=== PATIENT | male | born 1970 | race Two or more races ===

== ENCOUNTER 2024-12-18 16:06 | Emergency (ER) | payer MEDICAID, SELFPAY ==
[2024-12-18 16:18] VITALS: BP 123/78; PULSE 67; RESP 18; TEMP 37.1; O2SAT 96
--- NOTE | 2024-12-18 16:26 | XR_ITS ---
Examination: CT abdomen and pelvis without contrast. Coronal 3-D reconstructions. Sagittal 2-D reconstructions. Date and time of exam:December 18, 2024, 1635 hrs. Indications: Abdominal pain radiating to the lower back beginning today. CTDI: vol (mGy): 9.39. DLP: (mGycm): 195. Technique: Axial images of the abdomen have been obtained, 3 mm slice thickness Intravenous contrast material has not been administered. Low dose protocols were performed. One or more of the following dose reduction techniques were used; automated exposure control, adjustment of the mA and/or KV according to patient size, use of iterative reconstruction technique. Findings: 22 mm liver cyst, 26 mm left lobe liver cyst Fatty infiltration throughout the liver No gallstones Spleen not enlarged No pancreatic or adrenal mass. No renal or ureteral calculi, no hydronephrosis Aorta normal size No bowel obstruction Normal appendix No diverticulitis Normal seminal vesicles No prostatomegaly Contracted urinary bladder Moderate osteopenia without significant disc narrowing Impression: Benign liver cysts. No renal or ureteral calculi, no hydronephrosis. Normal appendix. No diverticulitis. No significant lumbar degenerative disc disease
--- NOTE | 2024-12-18 16:26 | PD.EDRME ---
Rapid Medical Screening Exam RME Arrival date/time: 12/18/24 16:06 54-year-old male with no known medical history presents to the emergency room with a chief complaint of right-sided flank pain x 1 day I have greeted and performed a focused initial assessment of this patient. A comprehensive ED assessment and evaluation of the patient, analysis of all test results, and completion of the medical decision making process will be conducted by additional ED providers. Chief Complaint: Back Pain/Injury Time Seen by Provider: 12/18/24 16:18 Vital signs: Vital Signs Temperature 98.7 F 12/18/24 16:18 Pulse Rate 67 12/18/24 16:18 Respiratory Rate 18 12/18/24 16:18 Blood Pressure 123/78 12/18/24 16:18 Pulse Oximetry (%) 96 12/18/24 16:18 Oxygen Delivery Method Room Air 12/18/24 16:18 Vital signs reviewed by provider: Yes
[2024-12-18 17:02] LABS: Basophils # (Auto) 0.1 Thou/mm3 (0.0-0.2); Basophils % (Auto) 1 % (0-2.5); Eosinophils # (Auto) 0.2 Thou/mm3 (0.0-0.5); Eosinophils % (Auto) 2 % (0-10); Hematocrit 45.0 % (41.0-53.0); Hemoglobin 15.7 g/dL (13.5-16.0); Immature Granulocytes Auto 0.05 Thou/mm3 (0.00-0.00); Lymphocytes # (Auto) 2.6 Thou/mm3 (1.0-4.8); Lymphocytes % (Auto) 28 % (10-50); Mean Corpuscular HGB Conc 34.9 g/dl (31.0-37.0); Mean Corpuscular Hemoglobin 32.1 pg (25.0-35.0); Mean Corpuscular Volume 92 fL (80-100); Monocytes # (Auto) 0.8 Thou/mm3 (0.0-0.8); Monocytes % (Auto) 9 % (0-12); Neutrophils # (Auto) 5.6 Thou/mm3 (1.8-7.7); Neutrophils % (Auto) 61 % (37-80); Nucleated Red Blood Cell # 0.00 Thou/mm3 (0.00-0.00); Nucleated Red Blood Cell % 0 /100 WBC (0); Platelet Count 267 Thou/mm3 (140-440); RDW Standard Deviation 39.6 fL (35.1-43.9); Red Blood Count 4.89 Miln/mm3 (4.50-5.90); White Blood Count 9.2 Thou/mm3 (3.8-10.6)
[2024-12-18 17:14] LABS: Alanine Aminotransferase 40 U/L (10-49); Albumin, Serum 4.2 gm/dL (3.5-5.0); Albumin/Globulin Ratio 1.4 (1.2-2.2); Alkaline Phosphatase 106 U/L (46-116); Anion Gap 10 (7-16); Aspartate Amino Transferase 24 U/L (0-34); BUN/Creatinine Ratio 13 Ratio (12-20); Bilirubin,Total 1.6 mg/dL (0.3-1.2); Blood Urea Nitrogen 10 mg/dL (9-23); Calcium 9.8 mg/dL (8.3-10.6); Calcium (Corrected) 9.8 mg/dL (8.5-10.1); Carbon Dioxide 26.1 mMol/L (20.0-31.0); Chloride 108 mMol/L (98-107); Creatinine (Component) 0.8 mg/dL (0.6-1.3); Globulin 3.1 gm/dL (2.3-3.5); Glucose 93 mg/dL (74-106); Lipase 31 U/L (12-53); Osmolality,Calculated 285 (275-295); Potassium 3.8 mMol/L (3.4-5.1); Sodium 144 mMol/L (136-145); Total Protein 7.3 gm/dL (5.7-8.2); eGFR > 60 See Note
[2024-12-18 17:26] LABS: Collection Type, Urine Clean Catch
[2024-12-18] MEDS: KETOROLAC INJ 60 MG/2 ML VIAL 30 MG IM (17:29)
[2024-12-18 17:40] LABS: Bilirubin,Urine Negative (Negative); Blood,Urine Negative (Negative); Clarity,Urine Clear (Clear/Hazy); Color,Urine Lt-Yellow (Lt Yel-Yel); Glucose, Urine Negative (Negative); Ketones,Urine Negative (Negative); Leukocyte Esterase,Urine Negative (Negative); Nitrite,Urine Negative (Negative); PH,Urine 5.5 (5.0-7.0); Protein,Urine Negative (Neg - Trace); RBC,Urine 1 /hpf (0-3); Specific Gravity,Urine 1.022 (1.001-1.035); Squamous Epithelial Cell,Urine < 1 /hpf (0-5); Urobilinogen,Urine Negative mg/dL (0.0-1.0); WBC,Urine < 1 /hpf (0-5)
--- NOTE | 2024-12-18 18:59 | PD.EDBACK ---
ED Back Injury Pain RME/HPI General Chief Complaint: Back Pain/Injury Stated Complaint: LOWER BACK PAIN X 1 DAY Time Seen by Provider: 12/18/24 16:18 Arrival date/time: 12/18/24 16:06 RME / HPI RME / HPI Narrative: 54-year-old male with no known medical history presents to the emergency room with a chief complaint of low back pain. Onset of symptoms for the last 2 days is low back pain, pain are just to the right lower extremity, described as dull ache, severity moderate. Patient denies any trauma. Patient has significant history of back pain in the past, usually almost every year for several days according to him. Patient denies any saddle anesthesia denies any urinary or bladder incontinence. Denies any bowel incontinence. Patient is ambulatory. Denies any fever. Related Data Previous Rx's ?Medication ?Instructions ?Recorded ibuprofen 800 mg tablet 800 mg PO Q8H PRN pain #30 tabs 12/18/24 methocarbamol 500 mg tablet 500 mg PO Q8H PRN pain #20 tabs 12/18/24 Allergies Allergy/AdvReac Type Severity Reaction Status Date / Time No Known Allergies Allergy Verified 12/18/24 16:11 Review of Systems Review of Systems Narrative Review of Systems: Review of system reviewed and within normal limits except mentioned in HPI ED Exam Narrative Physical exam: VITAL SIGNS: Reviewed. GENERAL APPEARANCE: Alert and interactive, follows commands, no acute distress, HEAD AND FACE: Non-traumatic. ENT: PERRL, pink conjunctivitis, eyelid no trauma, Mucous membrane moist. NECK: Supple, nontender, no nuchal rigidity. CHEST: No tenderness, no crepitus, no paradoxical movement, no retractions. LUNGS: Clear, well ventilated, symmetric, no rales, no wheezing, no ronchi, no stridor, good breath sounds bilaterally. HEART: Regular rate, regular rhythm, no murmur, no gallops. ABDOMEN: Soft, positive bowel sounds, nondistended, no guarding, nontender, no rebound, no masses, RECTAL: Deferred. GENITAL: Deferred. NEUROLOGICAL: Gross motor function intact sensory function intact, Appropriate for age. MUSCULOSKELETAL: low back tenderness, full range of motion. Positive straight leg raising test at 45 degrees on the right EXTREMITIES: Nontender, full range of motion. SKIN: Color pink, dry, no rash, no lacerations, no abrasions, no contusions. LYMPHATICS: Deferred. Course Quality Measures none Orders Category Date Time Status CT abdomen pelvis wo con Stat Exams 12/18/24 16:26 Completed CBC Stat Lab 12/18/24 16:42 Completed CMP [Comprehensive Metabolic Panel] Stat Lab 12/18/24 16:42 Completed Lipase Stat Lab 12/18/24 16:42 Completed UA [Urinalysis] Stat Lab 12/18/24 17:08 Completed Urine Culture Stat Lab 12/18/24 17:08 Received HYDROcodone*/APAP 5/325 [Malcolm 5/325] Med 12/18/24 18:56 Discontinued 1 tab PO X1 ONE Ketorolac Inj [Toradol Inj] Med 12/18/24 16:26 Discontinued 30 mg IM X1 ONE methocarbamoL [Robaxin] Med 12/18/24 18:56 Discontinued 500 mg PO X1 ONE Vital Signs Vital signs: Vital Signs Temperature 98.7 F 12/18/24 16:18 Pulse Rate 67 12/18/24 16:18 Respiratory Rate 18 12/18/24 16:18 Blood Pressure 123/78 12/18/24 16:18 Pulse Oximetry (%) 96 12/18/24 16:18 Oxygen Delivery Method Room Air 12/18/24 16:18 Back Pain / Injury MDM Narrative MDM Narrative:: 54-year-old male with no known medical history presents to the emergency room with a chief complaint of low back pain. Onset of symptoms for the last 2 days is low back pain, pain are just to the right lower extremity, described as dull ache, severity moderate. Patient denies any trauma. Patient has significant history of back pain in the past, usually almost every year for several days according to him. Patient denies any saddle anesthesia denies any urinary or bladder incontinence. Denies any bowel incontinence. Patient is ambulatory. Denies any fever. Laboratory workup all came back unremarkable including normal urinalysis. CT scan of the abdomen and pelvis showed benign liver cyst otherwise unremarkable results discussed with the patient. Patient was given Toradol IM with significant improvement of pain however still having pains I added Robaxin and Malcolm with complete resolution of pain. Patient stable for discharge home Patient data External records reviewed:: None Clinical information provided by:: patient Social determinants that could affect healthcare access:: none Patient has the following chronic illnesses:: Chronic back pain How is presenting disease/condition affected by chronic disease/condition?: exacerbated by Evaluation data The following diagnostics were reviewed and interpreted by me:: lab results and radiology exam(s) Lab and/or radiology exams considered but not ordered:: None Interpretation Summary: See results and MDM Medications / Prescriptions Medications or Prescriptions considered but not ordered:: None Medication administrations:: Medication Administration History Discontinued Medications Hydrocodone Bitart/Acetaminophen (Hydrocodone/Apap 5/325 Tablet) 1 tab PO X1 ONE Stop: 12/18/24 18:57 Ketorolac Tromethamine (Ketorolac Inj 60 Mg/2 Ml Vial) 30 mg IM X1 ONE Stop: 12/18/24 16:27 Last Admin: 12/18/24 17:29 Dose: 30 mg Documented By: Methocarbamol (Methocarbamol 500 Mg Tablet) 500 mg PO X1 ONE Stop: 12/18/24 18:57 Malcolm, Toradol, Robaxin Consultations Consultation(s) initiated? (list below): No Diagnosis Differential diagnosis back pain/injury: lumbar radiculopathy, sciatica and strain of lumbar region Most likely diagnosis given after review of the tests above:: Sciatica, low back pain Admission Indicated Admission indicated?: not indicated Admission Request Was there a request for admission?: No Disposition Plan Disposition Plan: Discharge Discharge Attestation Discharge Attestation: The patient and all family members were given an opportunity to ask questions and understood the discharge instructions. Discharge instructions specifically effects, indications for sooner follow up or return to the emergency department, and the expected course of current diagnosis. Patient condition: Stable Discharge Plan Plan Patient Disposition: HOME (Self Care) Discharge Disposition comment: Stable Prescriptions/Referrals Prescriptions/Med Rec: New methocarbamol 500 mg tablet 500 mg PO Q8H PRN (Reason: pain) Qty: 20 0RF ibuprofen 800 mg tablet 800 mg PO Q8H PRN (Reason: pain) Qty: 30 0RF Referrals: Kiran Bernard [Primary Care Provider] - In 1 week Problem List Clinical Impression: Sciatica, Low back pain Patient/Caregiver Discharge Instructions Discharge Activity: activity as tolerated Education Materials: Back Safety Bed Additional Instructions: Thank you for the opportunity for serving you today. You are stable for discharged . You are advised to: Follow-up with your PCP in 1 to 2 days ask your PCP to refer you to physical therapy Return to ED for worsening of symptoms Increase oral fluids Take medication as prescribed Print Language: [place] Stand Alone Forms: Elizabeth Award Info., Patient Portal Info Letter PA/ELECTRONICS TECHNICIAN Supervising Physician PA/ELECTRONICS TECHNICIAN Supervising Physician: MD Joseph
[2024-12-18] MEDS: HYDROcodone/APAP 5/325 TABLET 1 TAB PO (19:20)
== END 2024-12-18 19:35 | disposition home or self-care (01) ==
PROVIDERS: Nurse Practitioner Family; Emergency Provider Emergency Medicine; PCP Physician Assistant
DX: M54.40 Lumbago with sciatica, unspecified side (principal); K76.89 Other specified diseases of liver
CPT/HCPCS: 36415; 74176; 80053; 81001; 83690; 85025; 87086; 96372; 99283; J1885; A9270